=== PATIENT | female | born 1955 | race Two or more races ===

== ENCOUNTER 2023-12-19 08:56 | Outpatient (CLI) | payer OTHER | END 2023-12-19 08:58 | disposition home or self-care (01) | LOC: SONOGRAMA 08:56 | PROVIDERS: ATTEND Pathology Anatomic Pathology | DX: D34 Benign neoplasm of thyroid gland (principal); E06.3 Autoimmune thyroiditis; E07.89 Other specified disorders of thyroid; E04.2 Nontoxic multinodular goiter ==